=== PATIENT | female | born 1935 | race Caucasian/White ===

== ENCOUNTER → 2018-10-31 | Outpatient (CLI) | payer MEDICARE, BC ==
--- NOTE | 2018-11-01 00:18 | MR ---
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 FINDINGS: Diffusion weighted images demonstrate no evidence of a recent infarct or other diffusion ab normality. There is no worrisome extra-axial fluid collection. There is diffuse ventricular and sulc al prominence. Septum pellucidum vergae is present. Scattered foci of T2 hyperintensity throughout th e white matter seen with more confluent appearance noted at the periventricular level. Midline structures demonstrate normal morphology. The craniocervical junction appears within normal limits. Post contrast images demonstrate oval 6 mm area of homogeneous enhancement right suprasellar level ax ial image 15 corresponding to T2 axial image 13 suspicious for focal aneurysm near right A1 segment. No additional areas of suspicious enhancement. The dural venous sinuses appear patent. The visualized sinuses are clear and the globes are intact. Nasal septum is deviated to left of midline. IMPRESSION: 1. 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 2. 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 Advise [facility] [place] [facility] [place] confirma tion. Neurosurgical and/or endovascular surgical referral is advised.
== END ==
LOC: RADMRIMAIN 09:00
PROVIDERS: ATTEND Ophthalmology
DX: G31.9 Degenerative disease of nervous system, unspecified (principal); I67.82 Cerebral ischemia
CPT/HCPCS: 70553; A9585

== ENCOUNTER → 2018-11-10 | Outpatient (CLI) | payer MEDICARE, BC ==
--- NOTE | 2018-11-10 09:46 | MR ---
EXAMINATION TYPE: MR MRA/MRV head wo con DATE OF EXAM: 11/10/2018 8:12 AM COMPARISON: MRI brain November 10, 2018 HISTORY: abnormal mri, aneurysm Three-dimensional [id number] intracranial MRA/MRV was performed with multiple intensity projectio n images submitted and source data reviewed at the workstation. There is a dominant right vertebral artery. Nonvisualization of the left vertebral artery identified. Basilar artery and posterior branch vessels are patent. 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 Aneurysmal-like dilatation is noted bilaterally adjacent to the ophthalmic arteries measuring 9.3 mm on the left and 1.1 cm on the right. There is also 7 mm aneurysm noted to arise from the origin of the right A2 segment GOE. Major venous tributaries are patent. No evidence for venous thrombosis. IMPRESSION: 1. 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 2. 7 mm aneurysm noted arising from the origin of the right A2 segment. Normal study.
== END | disposition home or self-care (01) ==
LOC: RADMRIMAIN 07:34
PROVIDERS: ATTEND Ophthalmology
DX: I77.819 Aortic ectasia, unspecified site (principal); I67.1 Cerebral aneurysm, nonruptured
CPT/HCPCS: 70544